=== PATIENT | female | born 1950 | race American Indian/Alaskan Native ===

== ENCOUNTER 2018-04-19 17:50 | Observation (INO) | payer OTHER ==
--- NOTE | 2018-04-19 19:06 | ED PDOC ---
Arrival/HPI - General Chief Complaint: Respiratory Distress Time Seen by Provider: 04/19/18 18:35 Historian: Patient - History of Present Illness Narrative History of Present Illness (Text): 04/19/18 18:36 67 year old female, with past medical history of COPD and hypertension, and is scheduled for cardiac stent placement on May 05 for arterial blockage, now presents to the Emergency department complaining of chest pain since Thursday. Patient informs exacerbation of symptoms with ambulation, associated with dyspnea on exertion. Patient denies any other medical complaints. Patient denies any fever, chills, nausea, vomiting, abdominal pain, cough, headache, dizziness or any other complaints. Time/Duration: < week Symptom Onset: Gradual Symptom Course: Unchanged Quality: Aching Activities at Onset: Light Context: Home Past Medical History - Provider Review Nursing Documentation Reviewed: Yes - Infectious Disease Hx of Infectious Diseases: None - Reproductive Menopause: Yes - Cardiac Hx Hypertension: Yes - Pulmonary Hx Asthma: Yes Hx Chronic Obstructive Pulmonary Disease (COPD): Yes - Psychiatric Hx Substance Use: No - Surgical History Hx Hysterectomy: Yes (partial) Hx Tonsillectomy: Yes - Anesthesia Hx Anesthesia Reactions: No Hx Malignant Hyperthermia: No Family/Social History - Physician Review Nursing Documentation Reviewed: Yes Family/Social History: Unknown Family HX Smoking Status: Never Smoked Hx Alcohol Use: Yes Frequency of alcohol use: Socially Hx Substance Use: No Allergies/Home Meds Allergies/Adverse Reactions: Allergies niacin Allergy (Verified 04/19/18 18:00) REDNESS Home Medications: Home Meds Medication Instructions Recorded Confirmed Albuterol Sulfate [Proventil Hfa] 1 puff INH PRN PRN 04/19/18 04/19/18 Beclomethasone Dipropionate [Qvar 1 puff INH PRN PRN 04/19/18 04/19/18 80 mcg] RX: Labetalol [Trandate] 100 mg PO BID 04/19/18 04/19/18 Triamterene/Hydrochlorothiazid 1 tab PO DAILY 04/19/18 04/19/18 [Triamterene-Hctz 37.5-25 mg Cp] Review of Systems - Review of Systems Constitutional: absent: Fevers Eyes: absent: Vision Changes Respiratory: SOB. absent: Cough Cardiovascular: Chest Pain, [place] Gastrointestinal: absent: Abdominal Pain, Diarrhea, Nausea, Vomiting Genitourinary Female: absent: Dysuria, Urine Output Changes Musculoskeletal: absent: Back Pain, Neck Pain Skin: absent: Rash Neurological: absent: Headache, Dizziness Endocrine: absent: Polyuria Psychiatric: absent: Anxiety Physical Exam Vital Signs Reviewed: Yes Vital Signs Temp Pulse Resp BP Pulse Ox 04/19/18 17:51 98.2 F 84 18 127/80 98 Temperature: Afebrile Blood Pressure: Normal Pulse: Regular Respiratory Rate: Normal Appearance: Positive for: Well-Appearing, Non-Toxic, Comfortable Pain Distress: None Mental Status: Positive for: Alert and Oriented X 3 - Systems Exam Head: Present: Atraumatic, Normocephalic Pupils: Present: PERRL Extroacular Muscles: Present: EOMI Conjunctiva: Present: Normal Neck: Present: Normal Range of Motion Respiratory/Chest: Present: Clear to Auscultation, Good Air Exchange. No: Respiratory Distress, Accessory Muscle Use Cardiovascular: Present: Regular Rate and Rhythm, Normal S1, S2. No: Murmurs Abdomen: No: Tenderness, Distention, Peritoneal Signs Back: Present: Normal Inspection Upper Extremity: Present: Normal Inspection. No: Cyanosis, Edema Lower Extremity: Present: Normal Inspection. No: Edema Neurological: Present: GCS=15, CN II-XII Intact, Speech Normal Skin: Present: Warm, Dry, Normal Color. No: Rashes Psychiatric: Present: Alert, Oriented x 3, Normal Insight, Normal Concentration Medical Decision Making ED Course and Treatment: 04/19/18 18:36 Impression: 67 year old female presents to the Emergency department complaining of chest pain and dyspnea on exertion. Plan: -- Labs -- Chest X-ray -- Aspirin -- Reassess and disposition Prior Visits: Notes and results from previous visits were reviewed. Progress Notes: 04/19/18 20:06 EKGZ shows NSR at 76bpm with non-specific st changes, and qtc:483. Mag and Phos WNL. Trop x 1 negative. Cxray negative. Accepted by Dr. Raman for chest pain. - RAD Interpretation Radiology Orders: 04/19/18 18:36 CHEST PORTABLE [RAD] Stat - Medication Orders Current Medication Orders: Discontinued Medications Aspirin (Aspirin Chewable) 324 mg PO STAT STA Stop: 04/19/18 18:37 Last Admin: 04/19/18 19:01 Dose: 324 mg - Scribe Statement The provider has reviewed the documentation as recorded by the Jadynibgaetano Gay. All medical record entries made by the Magdalena were at my direction and personally dictated by me. I have reviewed the chart and agree that the record accurately reflects my personal performance of the history, physical exam, medical decision making, and the department course for this patient. I have also personally directed, reviewed, and agree with the discharge instructions and disposition. Disposition/Present on Arrival - Present on Arrival Any Indicators Present on Arrival: No History of DVT/PE: No History of Uncontrolled Diabetes: No Urinary Catheter: No History of Decub. Ulcer: No History Surgical Site Infection Following: None - Disposition Have Diagnosis and Disposition been Completed?: Yes Diagnosis: Chest pain Disposition: HOME/ ROUTINE Disposition Time: 17:51 Patient Plan: Observation Condition: FAIR
[2018-04-19 19:19] LABS: BASO # 0.03 K/mm3 (0.0-2.0); BASO % 0.3 % (0.0-3.0); EOS # 0.5 (0.0-0.7); EOS % 3.9 % (1.5-5.0); GRAN # 7.5 (1.4-6.5); GRAN % 63.9 % (50.0-68.0); HEMOGLOBIN 11.8 g/dL (12.0-16.0); LYMPH # 3.3 (1.2-3.4); LYMPH % 28.2 % (22.0-35.0); MEAN CELL VOLUME 78.7 fl (80.0-105.0); MEAN CORPUSCULAR HEMOGLOBIN 25.9 pg (25.0-35.0); MEAN PLATELET VOLUME 9.6 fl (7.0-11.0); MONO # 0.4 (0.1-0.6); MONO % 3.7 % (1.0-6.0); RBC 4.55 10^6/uL (3.5-6.1); RED CELL DISTRIBUTION WIDTH 14.9 % (11.5-14.5); WHITE BLOOD COUNT 11.7 10^3/uL (4.5-11.0)
[2018-04-19 19:23] LABS: INR 1.05; PARTIAL THROMBOPLASTIN TIME 31.2 Seconds (25.1-36.5)
[2018-04-19 19:24] LABS: ALBUMIN 3.8 g/dL (3.0-4.8); BLOOD UREA NITROGEN 12 mg/dL (7-21); CALCIUM 9.2 mg/dL (8.4-10.5); GFR NON-AFRICAN AMERICAN > 60
[2018-04-19 19:25] LABS: ALT/SGPT 14 U/L (7-56); AST/SGOT 22 U/L (14-36)
[2018-04-19 19:36] LABS: B-TYPE NATRIURETIC PEPTIDE 206 pg/mL (0-450); TROPONIN I 0.02 ng/mL
[2018-04-19] MEDS: Levalbuterol 0.63 MG/3 ML Inhal Soln UD IH SCH (20:48)
[2018-04-19] MEDS: Nitroglycerin 2% Ointment Foilpak UD TOP SCH (20:48)
[2018-04-19] MEDS: POLYETHYLENE GLYCOL 3350 17 GM/Dose PACKET PO SCH (21:18)
[2018-04-19 22:04] LABS: URIC ACID 5.9 mg/dL (2.5-6.2)
[2018-04-19 22:16] LABS: TROPONIN I 0.02 ng/mL
[2018-04-19 22:40] LABS: URINE BILIRUBIN NEGATIVE (NEGATIVE); URINE BLOOD SMALL (NEGATIVE); URINE GLUCOSE (UA) NEGATIVE (NEGATIVE); URINE LEUKOCYTE ESTERASE NEGATIVE Leu/uL (NEGATIVE); URINE PROTEIN NEGATIVE mg/dL (<30 mg/dL); URINE UROBILINOGEN 0.2 E.U./dL (<1 E.U./dL)
[2018-04-19 22:49] LABS: URINE APPEARANCE SL CLOUDY (CLEAR); URINE COLOR LIGHT YELLOW (YELLOW)
[2018-04-19] MEDS ORDERED: Iohexol 350 MG/100 ML VIAL ONE (22:49)
[2018-04-19 22:50] LABS: URINE AMORPHOUS SEDIMENT FEW; URINE BACTERIA MANY (NEG); URINE RBC 15 - 20 /hpf (0-2); URINE WBC 0 - 2 /hpf (0-6)
--- NOTE | 2018-04-19 23:59 | HP ---
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 According to the patient, the patient had a recent stress test, which was abnormal. The patient was advised elective cardiac catheterization and angioplasty and stent placement, which has been scheduled in 05/2018, but according to the patient's ER evaluation and the ER physician evaluation, the patient presented with above complaints of chest pain, chest heaviness, shortness of breath, dizziness and dyspnea on exertion and also complaining of diaphoresis and fleshy feeling. REVIEW OF SYSTEMS: A 14-system review was done, pertinent positive negative dictated above. CODE STATUS: Full code. LIVING WILL ADVANCE DIRECTIVE: None. Height is 5 feet 2 inches. Weight is 170. BMI is 31. HOME MEDICATIONS: 1. QVAR 1 puff daily. 2. Proventil HFA. 3. Dyazide 1 tablet daily. 4. Labetalol 100 mg twice a day. SOCIAL HISTORY: Positive for social alcohol use. Denies smoking. Denies drug use. Denies communicable transmissible disease. 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 FAMILY HISTORY: Positive for heart problems and coronary artery disease. PAST MEDICAL AND SURGICAL HISTORY: History of hypertension, history of asthma, history of abnormal stress test, history of tonsillectomy, history of social alcohol use, history of partial hysterectomy, and history of asthma. The patient denies any cerebral infarct. Denies any myocardial infarction. PHYSICAL EXAMINATION: GENERAL: The patient is seen lying in the stretcher #8 in the emergency room. VITAL SIGNS: T-max 98.2. Telemetry shows sinus rhythm, heart rate 74-84, blood pressure 127/80 and 174/95, respirations 18, and O2 sat 96%. HEENT: Head; normocephalic and atraumatic. HEENT examination shows pinkish conjunctivae. Anicteric sclerae. Dry oral mucosa. NECK: No neck rigidity. CHEST: Kyphosis. LUNGS: Shows no audible crackles, rales or wheezing. CARDIOVASCULAR: S1 and S2, regular rhythm. Questionable soft systolic murmur left sternal border, right second intercostal space, left second intercostal space. ABDOMEN: Soft. Positive bowel sounds. No palpable hepatosplenomegaly. GENITALIA: Female. RECTAL: Deferred. EXTREMITIES: Shows no pitting edema. No calf tenderness. No Homans' sign. NEUROLOGIC: The patient is alert, awake, and oriented x3, is able to move upper and lower extremity without assistance. Gait examination is not tested. MUSCULOSKELETAL: Shows a body mass index of 31. DIAGNOSTIC DATA: On 04/19/2018; WBC 11.7, hemoglobin and hematocrit 11.8 and 35.8, and platelets 390,000. PT and PTT 12 and 31.2. Sodium 140, potassium 3.7, chloride 103, CO2 of 31, anion gap 10, BUN 12, creatinine 0.8, GFR greater than 60, glucose 98, calcium 9.2, phosphorus 3.5, and magnesium 2. Troponin 0.02. BNP 206. LFTs are normal. Lipid panel is pending. The patient had a chest x-ray done, the official report pending. EKG shows sinus rhythm with questionable left axis deviation with questionable right ventricular conduction delay and questionable incomplete right bundle-branch block pattern. Chest x-ray, portable film does not show any congestive heart failure. The patient was seen in the emergency room by the ER physician. The patient was given aspirin and Plavix in the emergency room and the patient was advised to be admitted. IMPRESSION: 1. Chest pain. 2. Questionable rest and exertional angina. 3. Dyspnea on exertion and shortness of breath at rest. 4. History of possible coronary artery disease with abnormal stress test. 5. Uncontrolled hypertension. 6. History of asthma. 7. Mild leukocytosis. 8. Microcytic anemia. 9. Family history of coronary artery disease and heart problems. 10. Questionable left axis deviation with incomplete right bundle-branch block with regular sinus rhythm prime pattern with possible right ventricular conduction delay. 11. History of hypertension, history of hysterectomy, and history of asthma. 12. History of social alcohol use. PLAN: At this time, the patient will be admitted to [facility] Telemetry. The patient has been ordered serial cardiac enzymes, serial labs, lipid panel, hemoglobin A1c, troponin and CPK every 4 hours. D-dimer has been ordered. Repeat CBC ordered. Cardiology consultation ordered. The patient received aspirin 324 in the emergency room. The patient was started on aspirin 81 daily, Lipitor 40 daily, Lovenox 40 subcutaneously daily, nitroglycerin paste 1 inch every 6 hours, Plavix 75 daily, Protonix 40 daily, the patient's labetalol is resumed at 100 twice a day, Tylenol p.r.n., Xopenex nebulizer ordered, and Zofran ordered. Chest x-ray, incentive spirometry, oxygen 2 L ordered. Repeat EKG ordered. Echo with Doppler ordered. Consistent carbohydrate diet ordered. SHANE stockings, SCDs, and out of bed to chair ordered. At present, the patient was seen and evaluated in the emergency room in bed 8. The patient was explained about the details of her medical condition, need for evaluation by further specialty were discussed and explained to the patient. All questions concerned answered to the patient's satisfaction. At this time, the patient is waiting for a bed on telemetry. The patient's further management will be dependent upon the patient's clinical condition, hemodynamic status and as per the patient response to therapeutic intervention, as per the patient's diagnostic test results and as per recommendation by all the physician involved in the care of the patient. Dictated and electronically signed, not read. Nicholas Raman MD
[2018-04-20 00:58] VITALS: BMI 44.1
[2018-04-20 01:34] LABS: TROPONIN I 0.02 ng/mL
[2018-04-20] MEDS: Sodium Chloride 0.45% 1,000 ML IV SCH ×2 (05:30→14:23)
[2018-04-20 06:33] LABS: BASO # 0.02 K/mm3 (0.0-2.0); BASO % 0.2 % (0.0-3.0); EOS # 0.4 (0.0-0.7); EOS % 3.2 % (1.5-5.0); GRAN # 7.76 (1.4-6.5); GRAN % 65.7 % (50.0-68.0); HEMOGLOBIN 10.2 g/dL (12.0-16.0); LYMPH # 3.2 (1.2-3.4); LYMPH % 26.9 % (22.0-35.0); MEAN CELL VOLUME 77.7 fl (80.0-105.0); MEAN CORPUSCULAR HEMOGLOBIN 24.8 pg (25.0-35.0); MEAN CORPUSCULAR HGB CONC 31.9 g/dl (31.0-37.0); MEAN PLATELET VOLUME 9.4 fl (7.0-11.0); MONO # 0.5 (0.1-0.6); RBC 4.12 10^6/uL (3.5-6.1); WHITE BLOOD COUNT 11.8 10^3/uL (4.5-11.0)
[2018-04-20 06:55] LABS: TROPONIN I 0.02 ng/mL
[2018-04-20 07:00] LABS: LDL CHOLESTEROL 141 mg/dL (0-129)
[2018-04-20 07:22] LABS: ALB/GLOB RATIO 0.9 (1.1-1.8); ALBUMIN 3.2 g/dL (3.0-4.8); ALT/SGPT 17 U/L (7-56); AST/SGOT 26 U/L (14-36); BILIRUBIN,DIRECT 0.2 mg/dL (0.0-0.4); BLOOD UREA NITROGEN 11 mg/dL (7-21); CALCIUM 8.7 mg/dL (8.4-10.5); GFR NON-AFRICAN AMERICAN > 60; HDL CHOLESTEROL 24 mg/dL (29-60)
[2018-04-20] MEDS: Levalbuterol 0.63 MG/3 ML Inhal Soln UD IH SCH ×3 (08:28→20:33)
[2018-04-20 08:40] LABS: IRON 41 ug/dL (45-180)
[2018-04-20 08:49] LABS: % IRON SATURATION 16 % (20-55); TOTAL IRON BINDING CAPACITY 256 ug/dL (265-497)
[2018-04-20] MEDS: Nitroglycerin 2% Ointment Foilpak UD TOP SCH ×2 (09:07→14:20)
[2018-04-20] MEDS: Pantoprazole 40 mg EC Tab PO SCH (09:07)
[2018-04-20] MEDS: POLYETHYLENE GLYCOL 3350 17 GM/Dose PACKET PO SCH ×2 (09:07→18:58)
[2018-04-20] MEDS: Fluconazole IV 200mg/100 ml NS 100 ML IVPB SCH (09:08)
--- NOTE | 2018-04-20 09:15 | CT ---
Date of service: 04/19/2018 PROCEDURE: CT Chest with contrast (Pulmonary Angiogram) HISTORY: ELEVATED D.D COMPARISON: None available. TECHNIQUE: Axial computed tomography images were obtained of the chest in the pulmonary arterial phase of enhancement. Coronal and sagittal reformatted images were created and reviewed. Intravenous contrast dose: 100 cc of Omni 350 Radiation dose: Total exam DLP = 440.88 mGy-cm. This CT exam was performed using one or more of the following dose reduction techniques: Automated exposure control, adjustment of the mA and/or kV according to patient size, and/or use of iterative reconstruction technique. FINDINGS: PULMONARY ARTERIES: Unremarkable. No pulmonary embolism. AORTA: No acute findings. No thoracic aortic aneurysm. No aortic atherosclerotic calcification or mural plaque present. LUNGS: Unremarkable. No nodule, mass or pulmonary consolidation. PLEURAL SPACES: Unremarkable. No effusion or pneumothorax. HEART: Unremarkable. No cardiomegaly. No significant pericardial effusion. LYMPH NODES: No lymphadenopathy. BONES, CHEST WALL: Unremarkable. No fracture or destructive lesion OTHER FINDINGS: The report concurs with the preliminary [facility] report IMPRESSION: Unremarkable CT pulmonary angiogram. No pulmonary embolus.
--- NOTE | 2018-04-20 09:43 | RAD ---
Date of service: 04/19/2018 HISTORY: chest pain COMPARISON: No prior. FINDINGS: LUNGS: No active pulmonary disease. PLEURA: No significant pleural effusion identified, no pneumothorax apparent. CARDIOVASCULAR: No aortic atherosclerotic calcification present. Normal cardiac size. No pulmonary vascular congestion. OSSEOUS STRUCTURES: No significant abnormalities. VISUALIZED UPPER ABDOMEN: Normal. OTHER FINDINGS: None. IMPRESSION: No acute cardiopulmonary disease appreciated.
--- NOTE | 2018-04-20 09:44 | CARD ---
APPROVED REPORT Date of service: 04/19/2018 EKG Measurement Heart [id number] [place] 166P40 [id number] <Conclusion> Normal sinus rhythm RSR' or QR pattern in V1 suggests right ventricular conduction delay LAD Nonspecific T wave abnormality Prolonged QT
[2018-04-20] MEDS ORDERED: Enoxaparin 40 mg Syringe SC SCH (10:00)
--- NOTE | 2018-04-20 10:04 | CARD ---
APPROVED REPORT Date of service: 04/20/2018 EKG Measurement Heart [id number] [place] 176P56 [id number] <Conclusion> Normal sinus rhythm LAD Nonspecific T wave abnormality Mildly prolonged QTc, new
--- NOTE | 2018-04-20 12:16 | CARD ---
APPROVED REPORT Date of service: 04/19/2018 EKG Measurement Heart [id number] [place] 180P44 [id number] <Conclusion> Normal sinus rhythm RSR' or QR pattern in V1 suggests right ventricular conduction delay Nonspecific T wave abnormality LAD The QTc is now normal c/w ECG 04/19/18
--- NOTE | 2018-04-20 12:33 | PN ---
DATE: 04/20/2018 LOCATION: The patient is in room 269, bed two. SUBJECTIVE: Overnight nurse's notes were reviewed. No complaint of chest pain was documented. The patient's D-dimer was elevated for more than 600 for which the patient underwent CTA of the chest which was negative for PE. The patient also has no documented complaints of chest pain or shortness of breath. REVIEW OF SYSTEMS: A 14-systems review was done, overnight nurse's notes were reviewed. OBJECTIVE: VITAL SIGNS: T-max 98.9. Telemetry shows normal sinus rhythm, heart rate 77 to 87, blood pressure 150/72, respirations 16, O2 sat 99%. HEENT: Head: Normocephalic, atraumatic. HEENT examination shows pinkish pale conjunctivae. Anicteric sclerae. No oropharyngeal lesion. No neck rigidity. CHEST: Kyphosis. LUNGS: Shows occasional rhonchi at the bases. No wheezing, no crackles, no rales. CARDIOVASCULAR: S1, S2, regular rhythm. Questionable soft systolic murmur left sternal border, right second intercostal space, left second intercostal space. ABDOMEN: Soft. Positive bowel sounds. No palpable hepatosplenomegaly. GENITALIA: Female. RECTAL: Deferred. EXTREMITIES: Shows no pitting edema, no calf tenderness, no Homans' sign. NEUROLOGIC: The patient is alert, awake and oriented x3. Cranial nerves II-XII intact. Gait examination is independent. VASCULAR: Palpable pulses. PSYCHIATRIC: Negative. DIAGNOSTICS: CT of the chest shows cardiomegaly, bibasilar subsegmental atelectasis. WBC 11.8, hemoglobin/hematocrit 10.2, 32.0, platelets 325,000. ESR is elevated at 65. Troponin all 3 sets are negative. Sodium 138, potassium 3.8, chloride 105, CO2 29, BUN 11, creatinine 0.9, glucose 104, calcium 8.7, phosphorus 4.0, magnesium 2.0. LFTs are within normal limit. Cholesterol 187, HDL 24, LDL 141. Urinalysis shows positive yeast, positive blood and positive bacteria. IMPRESSION AND PLAN: 1. Chest pain versus arrest and exertional angina with rest and exertional shortness of breath and dyspnea on exertion. 2. History of coronary artery disease and abnormal stress test. 3 Cardiomegaly. 4. Bibasilar subsegmental atelectasis. 5. Mild leukocytosis. 6. Normocytic microcytic anemia. 7. Elevated erythrocyte sedimentation rate of 65. 8. Funguria, bacteriuria and microscopic hematuria. 9. Hyperlipidemia with elevated LDL and decreased HDL. 10. History of asthma. 11. History of hypertension. 1. Chest pain. 2. Questionable rest and exertional angina. 3. Dyspnea on exertion and shortness of breath at rest. 4. History of possible coronary artery disease with abnormal stress test. 5. Uncontrolled hypertension. 6. History of asthma. 7. Mild leukocytosis. 8. Microcytic anemia. 9. Family history of coronary artery disease and heart problems. 10. Questionable left axis deviation with incomplete right bundle-branch block with regular sinus rhythm prime pattern with possible right ventricular conduction delay. 11. History of hypertension, history of hysterectomy, and history of asthma. 12. History of social alcohol use. PLAN: At this time, Cardiology evaluation is pending. Echo with Doppler results are pending. The patient has been ordered iron studies, sickle cell screen, hemoglobin electrophoresis, erythropoietin, soluble transferrin receptor antibody has been ordered, stool for occult blood ordered. Repeat EKG is pending at this time which will be reviewed when available. Echo with Doppler is pending, which will be reviewed when available. The patient is awaiting Cardiology evaluation and clearance. As the patient mentioned yesterday that she is scheduled for a cardiac catheterization in the next coming week or so. So we are awaiting Cardiology recommendations regarding further recommendation about the patient whether the patient needs to have a cardiac catheterization and further invasive interventional procedures here at [facility] or Cardiology may clear the patient for discharge to follow up with the patient's own sustainability coach in [facility]. The patient updated about her diagnosis, diagnostic test results, etc., at length and all questions concerned answered. Dictated and electronically signed, not read. Nicholas Raman MD [place]
[2018-04-20] MEDS ORDERED: Lidocaine 2% Inj (20ml) ONE (14:27)
[2018-04-20] MEDS ORDERED: Iodixanol 320 MG/ML 100 ML BOTTLE IV ONE (14:27)
[2018-04-20] MEDS ORDERED: Iodixanol 320 MG/ML 200 ML BOTTLE IV ONE (14:27)
[2018-04-20] MEDS ORDERED: Iohexol 350mgl/ml 50 ML ONE (14:27)
[2018-04-20] MEDS ORDERED: Phenylephrine 10 mg/ml Inj ONE (14:27)
[2018-04-20] MEDS ORDERED: Nitroglycerin 50mg in D5W 0 MG/0 ML BOTTLE IV ONE (14:28)
[2018-04-20] MEDS ORDERED: Midazolam 2 MG/2 ML VIAL ONE ×2 (15:06→15:08)
[2018-04-20] MEDS ORDERED: Naloxone 0.4 mg/ml Inj (Adult) ONE (15:21)
[2018-04-20] MEDS ORDERED: Flumazenil 0.1 mg/ml Inj (5ml) IVP ONE (15:25)
[2018-04-20] MEDS ORDERED: Sodium Chloride 0.9% 1,000 ML IV SCH (15:45)
--- NOTE | 2018-04-20 16:34 | CARDCATH ---
PROCEDURE DATE: 04/20/2018 HISTORY: The patient is a 67-year-old woman who presents with progressive chest pain including angina at rest. Her angina used to only occur during activity. Now it has progressed to symptoms at rest. She has been followed in [place] where she was told she needs a coronary stent placed. Because of her ongoing symptoms, cardiac catheterization was recommended. PROCEDURE: Left heart catheterization with coronary arteriography and left ventriculogram. The right femoral artery was cannulated with a 6-[place] sheath. There were no complications. I performed moderate sedation which included the presence of an independent trained observer that assisted in monitoring the patient's consciousness and physiologic status. After giving Versed and fentanyl, my intra service time was 15 minutes. The findings on catheterization revealed a central aortic pressure of 90 mmHg. The findings on catheterization revealed a left ventricle that contracted normally. Estimated ejection fraction of 60%. The patient had a right dominant circulation. The RCA was free of significant disease. The left main artery is unremarkable. The LAD and diagonal vessels were free of significant disease. The circumflex artery and obtuse marginal branches were within normal limits. Angio-Seal was used to close the femoral artery site. The patient tolerated the procedure well. In summary, the procedure revealed unremarkable coronary arteries and normal LV function. Given these findings, the patient's chest pain is not of cardiac origin. I have discussed this with the patient in detail. We will send a report to [place] to a primary care doctor so that no coronary stent will be placed according to the patient. We will continue cardiac risk reduction program. Gadiel Warren MD
--- NOTE | 2018-04-20 17:49 | CARD ---
APPROVED REPORT Date of service: 04/20/2018 EXAM: Two-dimensional and M-mode echocardiogram with Doppler and color Doppler. INDICATION Chest Pain 2D DIMENSIONS Left Atrium (2D)4.1 (1.6-4.0cm)IVSd1.3 (0.7-1.1cm) LVDd3.6 (3.9-5.9cm)PWd1.5 (0.7-1.1cm) LVDs2.3 (2.5-4.0cm)FS (%) 34.5 % LVEF (%)64.5 (>50%) M-Mode DIMENSIONS Aortic Root2.90 (2.2-3.7cm)Aortic Cusp Exc.1.60 (1.5-2.0cm) Aortic Valve AoV Peak Xnfwoxek739.0cm/[place] Peak GR.14mmHg Mitral Valve MV E Bxihtvft74.4cm/sMV A Gzpracue07.9cm/sE/A ratio1.0 TDI Lateral E' Peak V6.82cm/sMedial E' Peak V6.04cm/sE/Lateral E'11.9 E/Medial E'13.5 Pulmonary Valve PV Peak Vwojfyqy93.9cm/sPV Peak Grad.3mmHg Tricuspid Valve TR Peak [id number]/sRAP FCMLRFWF36yfQjYA Peak Gr.23mmHg [id number] LEFT VENTRICLE The left ventricle is normal size. There is mild concentric left ventricular hypertrophy. The left ventricular function is normal. The left ventricular ejection fraction is within the normal range. There is normal LV segmental wall motion. RIGHT VENTRICLE The right ventricle is normal size. The right ventricular systolic function is normal. ATRIA The left atrium is mildly dilated. The right atrium size is normal. The interatrial septum is intact with no evidence for an atrial septal defect. AORTIC VALVE The aortic valve is normal in structure. No aortic regurgitation is present. There is no aortic valvular stenosis. MITRAL VALVE The mitral valve is normal in structure. Mitral regurgitation is trace. TRICUSPID VALVE The tricuspid valve is normal in structure. There is mild tricuspid regurgitation. PULMONIC VALVE The pulmonary valve is normal in structure. GREAT VESSELS The aortic root is normal in size. The IVC is normal in size and collapses >50% with inspiration. PERICARDIAL EFFUSION There is no pleural effusion. There is no pericardial effusion. <Conclusion> Dilated LA. Normal LV size and systolic function. Mild concentric LVH. Mild tricuspid regurgitation.
[2018-04-21 00:04] VITALS: RESP 20
[2018-04-21 01:33] LABS: MCH 25.3 pg (27.0-33.0); MCV 80.1 fL (80.0-100.0)
[2018-04-21] MEDS: Levalbuterol 0.63 MG/3 ML Inhal Soln UD IH SCH ×3 (02:16→13:14)
[2018-04-21] MEDS: Pantoprazole 40 mg EC Tab PO SCH (05:28)
[2018-04-21 06:29] VITALS: O2SAT 93
[2018-04-21 06:36] LABS: SICKLE CELL SCREEN Positive (Negative)
[2018-04-21 07:07] LABS: BASO # 0.01 K/mm3 (0.0-2.0); BASO % 0.1 % (0.0-3.0); EOS # 0.5 (0.0-0.7); EOS % 5.3 % (1.5-5.0); GRAN # 5.51 (1.4-6.5); GRAN % 58.5 % (50.0-68.0); HEMOGLOBIN 10.1 g/dL (12.0-16.0); LYMPH % 31.4 % (22.0-35.0); MEAN CELL VOLUME 78.1 fl (80.0-105.0); MEAN CORPUSCULAR HEMOGLOBIN 24.9 pg (25.0-35.0); MEAN CORPUSCULAR HGB CONC 31.9 g/dl (31.0-37.0); MEAN PLATELET VOLUME 9.3 fl (7.0-11.0); MONO # 0.4 (0.1-0.6); MONO % 4.7 % (1.0-6.0); RBC 4.06 10^6/uL (3.5-6.1); RED CELL DISTRIBUTION WIDTH 14.9 % (11.5-14.5); WHITE BLOOD COUNT 9.4 10^3/uL (4.5-11.0)
[2018-04-21 07:50] LABS: ALB/GLOB RATIO 0.9 (1.1-1.8); ALBUMIN 3.1 g/dL (3.0-4.8); ALT/SGPT 21 U/L (7-56); AST/SGOT 33 U/L (14-36); BILIRUBIN,DIRECT 0.3 mg/dL (0.0-0.4); BLOOD UREA NITROGEN 12 mg/dL (7-21); CALCIUM 8.5 mg/dL (8.4-10.5); GFR NON-AFRICAN AMERICAN > 60
[2018-04-21] MEDS: Fluconazole IV 200mg/100 ml NS 100 ML IVPB SCH (09:28)
[2018-04-21] MEDS: POLYETHYLENE GLYCOL 3350 17 GM/Dose PACKET PO SCH ×2 (09:29→17:14)
--- NOTE | 2018-04-21 10:04 | PN ---
DATE: 04/21/2018 SUBJECTIVE: The patient is asymptomatic post catheterization. PHYSICAL EXAMINATION: VITAL SIGNS: Her blood pressure is 140 systolic today, heart rate is in the 80s. NECK: Negative JVD. LUNGS: Without rales. HEART: S1, S2. EXTREMITIES: Without edema. The right groin site is stable. LABORATORY DATA: Hemoglobin is 10.1. Chemistries, BUN and creatinine are unremarkable. IMPRESSION 1. Recurrent chest pain. 2. Status post catheterization which shows no coronary lesions. 3. Hypertension. 4. Left ventricular hypertrophy. 5. Anemia. Given these findings, there is no evidence for a cardiac cause of her chest pain. Her treatment should be directed as a cardiac risk reduction program which needs to include control of her blood pressure. We will decrease her labetalol today to 50 b.i.d. I will discontinue telemetry today. From a cardiac perspective, the patient can be discharged. She needs to follow up with her doctors in [place] where she is chronically been followed. Gadiel Warren MD
--- NOTE | 2018-04-21 13:53 | CARD ---
APPROVED REPORT Date of service: 04/21/2018 EKG Measurement Heart [id number] [place] [id number] <Conclusion> Normal sinus rhythm LAD Nonspecific T wave abnormality Prolonged QTc
[2018-04-21 17:13] VITALS: BP 162/96; PULSE 83
[2018-04-21 17:57] VITALS: TEMP 99.2
--- NOTE | 2018-04-22 04:43 | DS ---
FINAL PROGRESS NOTE/DISCHARGE SUMMARY HISTORY OF PRESENT ILLNESS: The patient is seen in room 274, bed 2. The patient is seen lying in the bed. The patient is comfortable. Overnight nurse's notes were reviewed. The patient tolerated the cardiac catheterization, which the patient underwent yesterday without any adverse event. The patient slept overnight without any adverse event. The patient's right groin dressing was intact without any bleeding. PHYSICAL EXAMINATION: VITAL SIGNS: In the last 24 hours, T-max is 98.8. Telemetry shows heart rate of 74, 82, and 89 and telemetry monitoring shows normal sinus rhythm, no arrhythmias documented or reported. Blood pressure 144/92, 142/88, and 115/68. Respiration 20 and O2 sat 96%-98%. HEENT: Head examination; normocephalic, atraumatic. HEENT examination shows pinkish pale conjunctivae. Anicteric sclerae. No oropharyngeal lesion. NECK: No neck rigidity. CHEST: Kyphosis. LUNGS: Examination shows no audible crackle, rales or wheezing. CARDIOVASCULAR: S1, S2, regular rhythm. ABDOMEN: Soft. Positive bowel sounds. No palpable hepatosplenomegaly noted. GENITALIA: Female. RECTAL: Examination is deferred. EXTREMITIES: Show no pitting edema, no calf tenderness, no Homans' sign. Right groin site is intact. VASCULAR: Palpable pulses. MUSCULOSKELETAL: Examination shows a body mass index of 44. NEUROLOGIC: Cranial nerves II-XII limited. Gait examination is not tested. DIAGNOSTICS: On 04/21/2018; WBC 9.4, hemoglobin and hematocrit 10.1 and 31.7, platelet 312,000, MCV 78. Sickle cell screen is positive. Sodium 140, potassium 4, chloride 107, CO2 of 28, anion gap 9, BUN 12, creatinine 0.9, GFR greater than 60, glucose 102, calcium 8.5, phosphorus 3.8, magnesium 2.2. LFTs are normal. C-reactive protein is 12. Cardiac enzymes negative. Iron 41, iron saturation 16. Soluble transferrin receptor antibody pending. Urinalysis noted.. CT scan of the chest was reviewed. Echocardiogram report was reviewed. EKG was reviewed, cardiac catheterization. IMPRESSION AND PLAN: 1. Chest pain, etiology undetermined. 2. Possible musculoskeletal chest pain versus atypical chest pain. 3. History of hypertension. 4. Leukocytosis. 5. Microcytic anemia with sickle cell screen positive. 6. Elevated D-dimer of greater than 600. 7. Iron-deficiency anemia. 8. Hyperlipidemia with elevated LDL of 141 and decreased HDL of 24. 9. Elevated C-reactive protein of 12. 10. Microscopic hematuria, bacteriuria and funguria. 11. Left axis deviation. 12. Left ventricular ejection fraction of 65% with mild concentric left ventricular hypertrophy. 13. Trace mitral regurgitation and mild tricuspid regurgitation. 14. Status post cardiac catheterization. 15. History of asthma. 1. Chest pain versus arrest and exertional angina with rest and exertional shortness of breath and dyspnea on exertion. 2. History of coronary artery disease and abnormal stress test. 3 Cardiomegaly. 4. Bibasilar subsegmental atelectasis. 5. Mild leukocytosis. 6. Normocytic microcytic anemia. 7. Elevated erythrocyte sedimentation rate of 65. 8. Funguria, bacteriuria and microscopic hematuria. 9. Hyperlipidemia with elevated LDL and decreased HDL. 10. History of asthma. 11. History of hypertension. 1. Chest pain. 2. Questionable rest and exertional angina. 3. Dyspnea on exertion and shortness of breath at rest. 4. History of possible coronary artery disease with abnormal stress test. 5. Uncontrolled hypertension. 6. History of asthma. 7. Mild leukocytosis. 8. Microcytic anemia. 9. Family history of coronary artery disease and heart problems. 10. Questionable left axis deviation with incomplete right bundle-branch block with regular sinus rhythm prime pattern with possible right ventricular conduction delay. 11. History of hypertension, history of hysterectomy, and history of asthma. 12. History of social alcohol use. PLAN: At this time, the patient has been cleared by Cardiology for discharge by Dr. Gadiel Warren. The patient will be discharged home. DISCHARGE MEDICATIONS: As follows: Tylenol p.r.n. The patient is to resume Proventil HFA and QVAR inhaler. The patient is to resume Trandate 100 mg twice a day. The patient's new medications; Xopenex nebulizer 0.63 mg nebulizer treatment four times a day, Colace 100 mg 3 times a day, Lipitor 40 mg daily, Protonix 40 mg daily, and Tylenol p.r.n. The patient is discharged home. Discharge followup with Dr. Raman within 1 week. The patient was advised no alcohol, no smoking, and no driving. The patient's discharge medications as per the updated ambulatory orders plus new prescriptions. Time spent in the discharge process 45 minutes. Dictated and electronically signed, not read. Nicholas Raman MD MTDD
[2018-04-27 01:28] LABS: HEMOGLOBIN A 61.8 Percent (>96.0); HEMOGLOBIN A2 4.2 Percent (1.8-3.5)
== END 2018-04-21 18:13 | disposition home or self-care (01) ==
LOC: ED 17:50 → ERH 19:47 → 2RNO 22:28 → 2RSO 04-20 16:10
PROVIDERS: ADMIT Internal Medicine; ATTEND Internal Medicine
DX: R07.89 Other chest pain (principal); I11.9 Hypertensive heart disease without heart failure; I08.1 Rheumatic disorders of both mitral and tricuspid valves; J44.9 Chronic obstructive pulmonary disease, unspecified; J98.11 Atelectasis; D50.9 Iron deficiency anemia, unspecified; R79.1 Abnormal coagulation profile; E78.5 Hyperlipidemia, unspecified; D72.829 Elevated white blood cell count, unspecified; R31.29 Other microscopic hematuria; R82.71 Bacteriuria
CPT/HCPCS: 36415; 71045; 71275; 80053; 80061; 81001; 82248; 82550; 82668; 82728; 83021; 83036; 83615; 83735; 83880; 84100; 84238; 84466; 84484; 84550; 85014; 85018; 85025; 85041; 85044; 85378; 85610; 85651; 85660; 85730; 86140; 93005; 93306; 93458; 94640; 94760; 99152; 99153; 99285; C1760; C1769; C2629; G0378; J1450; J1644; J1650; J1756; J2250; J2310; J3010; J7030; Q9966; Q9967